=== PATIENT | female | born 1975 | race African-American/Black ===

== ENCOUNTER 2018-02-01 09:47 | Emergency (ER) | payer SELFPAY ==
[~2018-02-01] VITALS: Ht 180.3 cm; Wt 166.0 kg
[2018-02-01 09:55] VITALS: BP 154/87
--- NOTE | 2018-02-01 10:02 | NUR ---
Patient ambulated to bed 8 with family. RN evaluating patient at bedside.
--- NOTE | 2018-02-01 10:05 | NUR ---
REPORT GIVEN TO VANNESA ROBERTS.
--- NOTE | 2018-02-01 10:10 | NUR ---
42f bib with son with c/o dry hacking cough x 2 days. Patient denies any pain, cp, sob, fever, chills, or n/v/d. Clear speech with full setences. RR are even and unlabored. Pt is aox4. GCS=15. Awaiting er md lorenzo.
--- NOTE | 2018-02-01 11:35 | NUR ---
PATIENT LEFT W/O OBTAINING DISCHARGE VITAL SIGNS
--- NOTE | 2018-02-01 11:35 | NUR ---
PER ER MD CHO, PT ASKED FOR "COUGH MEDICINE WITH CODEINE IN LARGE AMOUNTS FOR HER AND HER SON". ER MD CHO STATED TO PATIENT HE WONT PRESCRIBE THAT MEDICATION FOR HER AND HER SON DUE TO THEIR MEDICAL HISTORY AND COMPLAINT AND BECAUSE OF THE LARGE AMOUNT THEY WERE ASKING. PT GOT UPSET AND CAME TO NURSINGS STATION AND THREW DISCHARGE PAPERWORK AT NURSES STATION. PATIENT LEFT WITHOUT DISCHARGE INSTRUCTIONS OR PRESCRIPTION OF PREDNISONE. PT STATED UPON EXITING ER "THAT DOCTOR IS A WHITE BITCH AND CAN STICK THAT PRESCIPTION UP HIS ASS". PT LEFT ER WITHOUT INCIDENT AND WITH STEADY GAIT.
== END 2018-02-01 11:35 | disposition home or self-care (01) ==
LOC: MED 09:47
DX: J42 Unspecified chronic bronchitis (principal); J44.9 Chronic obstructive pulmonary disease, unspecified; Z88.8 Allergy status to other drugs, medicaments and biological substances; Z87.891 Personal history of nicotine dependence; E11.9 Type 2 diabetes mellitus without complications
CPT/HCPCS: 99281